=== PATIENT | female | born 1990 | race Two or more races ===

== ENCOUNTER 2020-05-11 12:33 | Emergency (ER) | payer OTHER ==
[~2020-05-11] VITALS: Ht 162.6 cm; Wt 78.9 kg
[2020-05-11] MEDS ORDERED: PRENATAL + DHA1 EAC1 PO (12:56)
[2020-05-11] MEDS ORDERED: LIDODERM1 EACH TOP (14:50)
[2020-05-11] MEDS ORDERED: CYCLOBENZAPRINE10 MG PO (14:50)
== END 2020-05-11 15:03 ==
LOC: ER 12:33
DX: M62.830 Muscle spasm of back (principal)

== ENCOUNTER 2020-09-04 13:21 | Emergency (ER) | payer OTHER ==
[~2020-09-04] VITALS: Ht 162.6 cm; Wt 80.7 kg
[~2020-09-04 13:21] MED LIST: CYCLOBENZAPRINE10 MG PO; LIDODERM1 EACH TOP; PRENATAL + DHA1 EAC1 PO
[2020-09-04] MEDS ORDERED: MACRODANTIN100 M1 PO (22:22)
== END 2020-09-04 22:57 | disposition home or self-care (01) ==
LOC: ER 13:21
DX: N39.0 Urinary tract infection, site not specified (principal); R11.11 Vomiting without nausea; R10.9 Unspecified abdominal pain; Z33.1 Pregnant state, incidental

== ENCOUNTER 2020-11-07 08:50 | Outpatient (CLI) | payer OTHER ==
[~2020-11-07 08:50] MED LIST changes: +MACRODANTIN100 M1 PO
== END 2020-11-07 10:36 | disposition home or self-care (01) ==
LOC: PRENATAL 08:50
PROVIDERS: ATTEND Obstetrics & Gynecology Maternal & Fetal Medicine
DX: O35.3XX1 Maternal care for (suspected) damage to fetus from viral disease in mother, fetus 1 (principal); O35.0XX1 Maternal care for (suspected) central nervous system malformation in fetus, fetus 1; O98.513 Other viral diseases complicating pregnancy, third trimester; O24.410 Gestational diabetes mellitus in pregnancy, diet controlled; O36.8131 Decreased fetal movements, third trimester, fetus 1; Z36.89 Encounter for other specified antenatal screening; Z3A.35 35 weeks gestation of pregnancy

== ENCOUNTER 2020-11-17 08:15 | Inpatient (IN) | payer OTHER ==
[~2020-11-17] VITALS: Ht 162.6 cm; Wt 3.2 kg
== END 2020-11-25 14:44 | disposition home or self-care (01) | DRG 785 ==
LOC: O/R 11-22 06:18 → OB/GYN 11-22 06:18
PROVIDERS: ADMIT Obstetrics & Gynecology; ATTEND Obstetrics & Gynecology
PROC: 0UB70ZZ Excision of Bilateral Fallopian Tubes, Open Approach (ICD-10-PCS; 2020-11-22)
PROC: 4A1HXFZ Monitoring of Products of Conception, Cardiac Rhythm, External Approach (ICD-10-PCS; 2020-11-22)
PROC: 10D00Z1 Extraction of Products of Conception, Low, Open Approach (ICD-10-PCS; principal; 2020-11-22 14:15)
DX: O34.211 Maternal care for low transverse scar from previous cesarean delivery (principal); O24.420 Gestational diabetes mellitus in childbirth, diet controlled; Z30.2 Encounter for sterilization; Z53.29 Procedure and treatment not carried out because of patient's decision for other reasons; Z37.0 Single live birth; Z3A.38 38 weeks gestation of pregnancy

== ENCOUNTER 2020-11-27 11:35 | Emergency (ER) | payer OTHER ==
[~2020-11-27] VITALS: Ht 162.6 cm; Wt 81.2 kg
[2020-11-27] MEDS ORDERED: KETO10TA2 PO (17:02)
[2020-11-27] MEDS ORDERED: CIPRO HC OTIC S10 ML OT (17:02)
[2020-11-27] MEDS ORDERED: AMOX-CLAV 875-1 EAC1 PO (17:02)
[2020-11-27] MEDS ORDERED: INTESTINEX680 M1 PO (17:02)
== END 2020-11-27 19:03 ==
LOC: ER 11:35
DX: H60.93 Unspecified otitis externa, bilateral (principal)